=== PATIENT | female | born 1990 | race Two or more races ===

== ENCOUNTER 2017-05-25 11:50 | Emergency (ER) | payer SELFPAY ==
[~2017-05-25] VITALS: Ht 160 cm; Wt 45.4 kg
[2017-05-25 11:58] VITALS: BP 99/59
[2017-05-25 12:55] LABS: APPEARANCE,URINE CLEAR; KETONES,URINE NEGATIVE (NEGATIVE); LEUKOCYTE ESTERASE ,URINE NEGATIVE (NEGATIVE); NITRITE,URINE NEGATIVE (NEGATIVE); PH,URINE 6 (4.5-8.0); PROTEIN,URINE NEGATIVE (NEGATIVE); UROBILINOGEN,URINE NORMAL MG/DL (0.0-1.0)
[2017-05-25 13:03] LABS: BACTERIA,URINE FEW /HPF; SQUAMOUS EPITHELIAL CELL,UR FEW /LPF (NONE/OCC); WBC,URINE 0-2 /HPF (0 - 2)
[2017-05-25] MEDS ORDERED: Dicyclomine HCl 10mg/5ml oral soln ORAL ONE (14:00)
[2017-05-25] MEDS ORDERED: IBUPROFEN600 MG ORAL (15:02)
--- NOTE | 2017-05-25 15:02 | Emergency Room Report ---
History of Present Illness General Chief Complaint: Abdominal Pain Source: Patient Present Illness HPI 26 YO Female presents to the ED C/O left lower adnexal pain 6/10 in severity cramping pressure x 3 weeks. no N/V/D, some spotting, missed period in nov. has IUD. no fevers or chills. reports some abdominal bloating. Denies CP, Palpitations, LOC, AMS, dizziness, Changes in Vision, Sensation, paresthesias, or a sudden severe headache. denies vaginal d/c. Allergies: Coded Allergies: MORPHINE (Verified Allergy, Unknown, 05/25/17) Patient History Past Medical History: see triage record Past Surgical History: none Pertinent Family History: none Last Menstrual Period: IUD Reviewed Nursing Documentation: PMH: Agreed, PSxH: Agreed Nursing Documentation-PMH Past Medical History: No History, Except For Review of Systems All Other Systems: negative except mentioned in HPI Physical Exam Vital Signs Date Time Temp Pulse Resp B/P (MAP) Pulse Ox O2 Delivery O2 Flow Rate FiO2 05/25/17 11:58 97.9 69 18 99/59 100 Room Air Sp02 EP Interpretation: reviewed, normal General Appearance: no apparent distress, alert, GCS 15, non-toxic Head: normocephalic, atraumatic Eyes: bilateral eye normal inspection, bilateral eye PERRL ENT: hearing grossly normal, normal voice Neck: full range of motion Respiratory: lungs clear, normal breath sounds, speaking full sentences Cardiovascular #1: regular rate, rhythm Gastrointestinal: normal bowel sounds, non tender, soft, other - LLQ tenderness mainly in left adnexal area. otherwise normal abdominal exam Rectal: deferred Genitourinary: normal inspection, no CVA tenderness Musculoskeletal: back normal, gait/station normal, normal range of motion, non- tender Neurologic: alert, oriented x3, responsive, motor strength/tone normal, sensory intact, speech normal Skin: normal color, no rash, warm/dry, well hydrated Lymphatic: no adenopathy Medical Decision Making PA Attestation Dr. Rasheed is my supervising Physician whom patient management has been discussed with. Diagnostic Impression: Primary Impression: Ovarian cyst Qualified Codes: N83.202 - Unspecified ovarian cyst, left side ER Course 26 YO Female presents to the ED C/O left lower adnexal pain 6/10 in severity cramping pressure x 3 weeks. no N/V/D, some spotting, missed period in nov. has IUD. no fevers or chills. reports some abdominal bloating. Denies CP, Palpitations, LOC, AMS, dizziness, Changes in Vision, Sensation, paresthesias, or a sudden severe headache. denies vaginal d/c. Ddx considered but are not limited to Diverticulitis, acute appy, ovarian torsion, ectopic , PID tubo-ovarian abscess, ovarian cyst. Vital signs: are WNL, pt. is afebrile H&PE are most consistent with possible ovarian cyst, however due to presentation will r/o torsion, ectopic, and stone. ORDERS: -UA: WNL -URINE HCG:Negative -Pelvic US Complete: Left hemorrhagic ovarian cyst. ED INTERVENTIONS: - Bentyl - Tylenol PO d/w pt. conservative treatment, and to follow up with a primary care provider. pt given a list of primary care clinics for follow up. d/w pt. to return to the ED with worsening or new symptoms. d/w pt. OBGYN Follow up DISCHARGE: At this time pt. is stable for d/c to home. Will provide printed patient care instructions, and any necessary prescriptions. Care plan and follow up instructions have been discussed with the patient prior to discharge. Labs Test 05/25/17 12:17 Urine Color Pale yellow Urine Appearance Clear Urine pH 6 (4.5-8.0) Urine Specific Gays 1.015 (1.005-1.035) Urine Protein Negative (NEGATIVE) Urine Glucose (UA) Negative (NEGATIVE) Urine Ketones Negative (NEGATIVE) Urine Occult Blood 2+ (NEGATIVE) Urine Nitrite Negative (NEGATIVE) Urine Bilirubin Negative (NEGATIVE) Urine Urobilinogen Normal MG/DL (0.0-1.0) Urine Leukocyte Esterase Negative (NEGATIVE) Urine RBC 2-4 /HPF (0 - 2) Urine WBC 0-2 /HPF (0 - 2) Urine Squamous Epithelial Cells Few /LPF (NONE/OCC) Urine Bacteria Few /HPF (NONE) Urine HCG, Qualitative Negative CT/MRI/US Diagnostic Results CT/MRI/US Diagnostic Results : Imaging Test Ordered: Pelvic US Impression Left hemorrhagic cyst, normal Doppler flow to the ovaries bilaterally.-- per preliminary US Tech Report. Last Vital Signs Date Time Temp Pulse Resp B/P (MAP) Pulse Ox O2 Delivery O2 Flow Rate FiO2 05/25/17 11:58 97.9 69 18 99/59 100 Room Air Disposition: HOME, SELF-CARE Condition: Stable Scripts Ibuprofen* (MOTRIN*) 600 Mg Tablet 600 MG ORAL THREE TIMES A DAY, #30 TAB 0 Refills Prov: Angela Talavera 05/25/17 Referrals: NOT CHOSEN IPA/MD,REFERRING (PCP) Patient Instructions: Ovarian Cyst Additional Instructions: Take medications as directed. Follow up with a OBGYN within 3-5 days, even if your symptoms have resolved. Return sooner to ED if new symptoms occur, or current symptoms become worse. - Please note that this Emergency Department Report was dictated using [employer] trimmer technology software, occasionally this can lead to erroneous entry secondary to interpretation by the dictation equipment. Angela Talavera May 25, 2017 15:02
[2017-05-25 15:07] VITALS: BP 101/66
--- NOTE | 2017-05-25 15:53 | Diagnostic Imaging Report ---
Indication: Left-sided pelvic pain, irregular menstruation Technique: Transabdominal and transvaginal images Comparison: none Findings: Uterus measures 7.5 cm length by 4.3 cm AP. Endometrium measures 3 mm thick. There is an intrauterine device in the expected location. No myometrial abnormality. Right ovary measures 3.1 cm in length. Left ovary measures 5.4 cm in length. A lesion is seen in the left adnexa measuring 4.3 cm with appearance consistent with hemorrhagic cyst; no imaging follow-up is required. Impression: No acute abnormality Incidental findings of intrauterine device and hemorrhagic left ovarian cyst Recommendations for adnexal cyst follow-up per Society of Radiologists in Ultrasound 2009 consensus statement on management of asymptomatic and ovarian and other adnexal cysts (Valdovinos et al., Radiology 2010 256: 943-54).
== END 2017-05-25 15:07 | disposition home or self-care (01) ==
LOC: EMR 12:34
DX: N83.202 Unspecified ovarian cyst, left side (principal); Z88.6 Allergy status to analgesic agent
CPT/HCPCS: 76856; 81003; 81025; 99284